=== PATIENT | male | born 1970 | race Caucasian/White ===

== ENCOUNTER → 2022-09-20 | Outpatient (CLI) | payer OTHER, SELFPAY ==
[2022-09-20 12:14] LABS: Absolute Lymphocyte Count 1.58 X10^3/uL (0.83-4.51); Absolute Neutrophil Count 2.5 X10^3/uL (2.0-7.7); Basophil# 0.04 X10^3/uL; Basophil% 0.8 % (0-1); Eosinophil# 0.13 X10^3/uL; Eosinophils% 2.7 % (0-5); Hematocrit 46.6 % (40-54); Lymphocyte # 1.58 X10^3/ul (0.83-4.51); Lymphocyte % 32.9 % (19-41); Mean Corp Hgb Conc 32.2 g/dL (32-36); Mean Corpuscular Hgb 31.2 pg (27.0-32.0); Mean Corpuscular Volume 96.9 fL (80-94); Mean Platelet Vol. 11.7 fl (6.2-12.0); Monocyte# 0.51 X10^3/uL; Monocyte% 10.6 % (0-10); NRBC Flagged by Analyzer 0 % (0-5); Neutrophil # 2.53 X10^3/uL (2.7-7.7); Neutrophil % 52.8 % (47-70); Platelet Count 251 K/mm3 (150-450); RBC Distribution Width CV 12.6 % (11.6-14.6); RBC Distribution Width SD 44.7 fl (35.1-43.9); Red Blood Count 4.81 M/mm3 (4.6-6.2); White Blood Count 4.8 K/mm3 (4.4-11.0)
[2022-09-20 12:35] LABS: Vitamin D,25 Hydroxy 29.2 ng/mL
[2022-09-20 12:39] LABS: ALB/GLOB Ratio 1.1 RATIO (0.9-2.4); AST(SGOT) 23 U/L (15-37); Alanine Aminotransfer ALT/SGPT 46 U/L (16-61); Albumin, Serum 4.1 g/dL (3.2-5.0); Alkaline Phosphatase 82 U/L (45-117); Anion Gap 5 (5-15); BUN 20 mg/dL (7-18); BUN/Creat Ratio 16.3 RATIO (10-20); Chloride 105 mmol/L (98-107); Cholesterol 214 mg/dL (200); Creatinine, Serum 1.23 mg/dL (0.70-1.30); EST Glomerular Filtration Rate 66 mL/min (>60); Est Glom Filt Rate - Afr Amer 80 mL/min (>60); Globulin 3.6 g/dL (2.2-4.2); Glucose 92 mg/dL (74-106); High Density Lipoprotein 63 mg/dL; PSA,Total - Annual Screen 2.31 ng/mL (0.00-4.00); Potassium 4.5 mmol/L (3.5-5.1); Protein, Total 7.7 g/dL (6.4-8.2); Sodium Level 139 mmol/L (136-145); Triglycerides 112 mg/dL; Very Low Density Lipoprotein 22 mg/dL (5-40)
== END | disposition home or self-care (01) ==
PROVIDERS: PCP Internal Medicine; Referring Provider Internal Medicine; Visit Provider Internal Medicine
DX: Z00.00 Encounter for general adult medical examination without abnormal findings (principal); Z13.220 Encounter for screening for lipoid disorders; Z12.5 Encounter for screening for malignant neoplasm of prostate; E55.9 Vitamin D deficiency, unspecified
CPT/HCPCS: 36415; 80053; 80061; 82306; 84153; 85025; G0103

== ENCOUNTER 2024-05-30 08:19 | Day surgery (SDC) | payer OTHER, SELFPAY ==
[2024-05-30] VITALS (7 sets, daily range): BP systolic 105–152; BP diastolic 61–83; PULSE 67–83; RESP 14–16; TEMP 36.1–37.1; O2SAT 97–100; BMI 27.3
--- NOTE | 2024-05-30 08:35 | PRE.ANES_ITS ---
ASA Classification* ASA Classification ASA Classification: 2 Assessment & Plan Anesthesia* Anesthesia Assessment Anesthesia Assessment: Discussed sedation and/or anesthesia options, risks, benefits, and alternatives with patient/parents/legal guardian/POA. Questions invited. The patient/parents/legal guardian/POA seems to understand and agrees to proceed with anesthesia plan. Reviewed the physical assessment, medical history, allergy history and patient home medications list prior to surgery/procedure/anesthetic and documented any changes. Performed airway and anesthesia risk assessments. Anesthesia Type Anesthesia Type: MAC (see written pre anesthesia record for full assessment) Anesthesia Focused Assessment* Airway Assessment Mouth opens: >3 cm Mallampati Score: II Focused Labs Anesthesia Preop lab: CBC WBC 4.8 K/mm3 (4.4-11.0) 09/20/22 08:16 RBC 4.81 M/mm3 (4.6-6.2) 09/20/22 08:16 Hgb 15.0 g/dL (13.0-16.5) 09/20/22 08:16 Hct 46.6 % (40-54) 09/20/22 08:16 Plt Count 251 K/mm3 (150-450) 09/20/22 08:16 CHEMISTRY Potassium 4.5 mmol/L (3.5-5.1) 09/20/22 08:16 Sodium 139 mmol/L (136-145) 09/20/22 08:16 BUN 20 mg/dL (7-18) H 09/20/22 08:16 Creatinine 1.23 mg/dL (0.70-1.30) 09/20/22 08:16 Glucose 92 mg/dL (74-106) 09/20/22 08:16 COAG Pre-Assessment Diagnosis/Proposed Procedure Planned Operative Procedure(s): COLONOSCOPY-OA Anesthesia History Anesthesia History - printer machine: Anesthesia History - printer machine Hx Hospitalization No 05/27/24 15:44 Any Problems With Anesthesia No 05/27/24 15:44 Cholinesterase deficiency No 05/27/24 15:44 You/Your Family Experience No 05/27/24 15:44 fever (hyperthermia) with Relationship Recent Exposure to Contagious Disease Does patient have nerve No 05/27/24 15:44 stimulator Patient instructed to have device shut off --Does patient have Pacemaker or ICD? When Was Last Pacemaker Check QUESTION #4 FULL TEXT: You/Your Family Experience fever (hyperthermia) with Anesthesia Last Oral Intake Last Oral intake: Last Oral Intake NPO since Meds taken in AM with sips of water? Meds patient instructed to take am of surgery PONV PONV - printer machine: PONV - printer machine Female No 05/27/24 15:44 HX of Motion Sickness No 05/27/24 15:44 HX of N/V After Surgery No 05/27/24 15:44 Non-Smoker Yes 05/27/24 15:44 Duration of Surgery greater No 05/27/24 15:44 than 60 minutes Number of Risk Factors 1 05/27/24 15:44 PONV Score Low Risk 05/27/24 15:44 Height & Weight Height & Weight: Anesthesia: Height & Weight Height 5 ft 11 in 03/27/24 09:11 Respiratory Assessment Respiratory Assessment - printer machine: Respiratory Tract Infection Hx - printer machine Hx Respiratory Tract Infection No 05/27/24 15:44 STOP Sleep Apnea STOP Sleep Apnea - printer machine: STOP Sleep Apnea - printer machine Hx Hypertension No 05/27/24 15:44 Hx Sleep Apnea No 05/27/24 15:44 CPAP BIPAP Do you snore loudly (louder Yes 05/27/24 15:44 than talking or can be heard Do you often feel tired/ No 05/27/24 15:44 fatigued/ sleepy during daytime? Has anyone observed you stop No 05/27/24 15:44 breathing during sleep? STOP Results Negative 05/27/24 15:44 QUESTION #5 FULL TEXT : Do you snore loudly (louder than talking or can be heard through closed doors)? 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 Specify any problems Hx of Preganancy in last 3 N/A 05/27/24 15:44 Months Nurse Filling Out Transfusion VCHRISTIN 05/27/24 15:44 & Questions: Date: 05/27/24 05/27/24 15:44 Time: 15:46 05/27/24 15:44 Patient unable to answer at this time (ie. confused, unrespo /Reproduction History /Reproductive History - printer machine: /Reproductive Hx- printer machine Hx Now Gestational Age (in weeks): EDC: Hx Hx Para Hx Section SAB PFSH Medical History Alcohol use Non-smoker Colon cancer screening Broken jaw Home Medications ?Medication ?Instructions ?Recorded ?Last Taken ?Type NK 09/13/22 Unknown History Allergy/AdvReac Type Severity Reaction Status Date / Time Seasonal Allergies: Uncoded Allergy Mild other Verified 05/27/24 15:40 Social History adopted: No household members: spouse housing: house number of children: 2 current occupational status: employed 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
--- NOTE | 2024-05-30 09:10 | H&P.OPEN ---
HPI - General HPI Narrative JORGE CEBALLOS, is a 54 M who presents for screening colonoscopy. The patient has never had a colonoscopy in the past. He denies abdominal pain or blood in the stool. He has no family history of colon cancer. 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 leisure activities: sports history of recent travel: No sexually active: Yes Smoking Status: Never smoker alcohol intake: current details: couple times a week substance use type: does not use well-balanced diet: daily or most days caffeine: Yes eating out: 1-3 times/week during the past year weight has: remained stable frequency: 1-2 times per week katerina/scientology: Roman Catholic seatbelt use: always do you feel safe at home: Yes Past Medical/Surgical History Planned Operation Planned Operative Procedure(s): COLONOSCOPY-OA Previous Hospitalizations/Surgeries HX Hospitalizations: No Any Problems With Anesthesia: No You/Your Family Experience Fever (Hyperthermia) With Anes: No Cholinesterase deficiency: No Cardiovascular Hx Hypertension: No Respiratory Hx Sleep Apnea: No Hx Respiratory Tract Infection/Cold (presently): No Do You Snore Loudly (louder than talking or can be heard): Yes Do You Often Feel Tired/ Fatigued/ Sleepy Dring Daytime?: No Has Anyone Observed You Stop Breathing During Sleep?: No Result (for STOP score): Negative Smoking Status: Never smoker Neurological Does patient have nerve stimulator: No Miscellaneous Recent Exposure to Contagious Disease: No Allergies Seasonal Allergies: Uncoded Allergy (Mild, Verified 05/30/24 08:37) other Discharge Is Pt Admitted From a [facility]sp, or a Shelter: No After D/C, Where Do you Plan to Go: Return Home Vital Signs Vital Signs Vital Signs: 05/30/24 08:37 05/30/24 08:37 Temperature 97.4 F L Temperature Source Temporal Pulse Rate 67 Respiratory Rate 14 Respiratory Pattern Normal Blood Pressure 152/82 H Blood Pressure Mean 105 Blood Pressure Source Monitor Blood Pressure Position Semi-Fowlers Blood Pressure Location Left Arm Pulse Ox 100 Oxygen Delivery Method Room Air Weight Weight: 196 lb 3.382 oz Body Mass Index (BMI) 27.3 Physical Exam Const alert and oriented x3 HEENT normocephalic Eyes PERRL Resp normal respiratory effort and normal air movement Cardio regular rate and regular rhythm GI soft to palpation, non-tender and non-distended Extremity normal to inspection Assessment & Plan Assessment/Plan (1) Colon cancer screening: PLAN: I explained endoscopy in detail to the patient. I explained the risks including but not limited to stroke or heart attack with anesthesia, perforation of the GI tract, bleeding, infection. I explained that any of these could necessitate further emergency surgery. The patient understands and all questions were answered sufficiently. The patient wishes to proceed with procedure. Colin Gill MD Pager: [facility] [address] [place] [address] [address] [place] [address] Office: Surgery Risks - Colonoscopy Risks Include but are not Limited To: Risks include but are not limited to: Bleeding, perforation requiring further surgery, inability to complete colonoscopy requiring barium enema.
--- NOTE | 2024-05-30 09:40 | PCM.POST.ANE ---
Anesthesia: Postop Eval I Current Vital Signs Temperature: 97 F Pulse Rate: 77 Blood Pressure: 125/61 Respiratory Rate: 16 Pulse Ox: 98 Oxygen Delivery Method: Room Air Assessment Airway patent: Yes Spontaneous unlabored respirations: Yes Mental status: Awake and Calm nausea: No Vomiting: No Anesthesia Complication: No Fluid Hydration Crystalloid volume administer (ml): 30 Total IV fluid infused: 30 Progress Note Anesthesia document: Postop Eval 1 completed: Yes
--- NOTE | 2024-05-30 09:55 | PCM.POSTANE2 ---
Anesthesia Postop Eval I Sum Postop Eval Completion status Anesthesia document: Postop Eval 1 completed: Yes Anesthesia Postop Eval I Summary Anesthesia Postop Eval I Summary: Anesthesia Postop Eval I: Assessment Summary Airway patent Yes 05/30/24 09:41 [email or web address] Spontaneous unlabored Yes 05/30/24 09:41 [email or web address] respirations Mental status Awake,Calm 05/30/24 09:41 [email or web address] nausea No 05/30/24 09:41 [email or web address] Vomiting No 05/30/24 09:41 [email or web address] Anesthesia Postop Eval I: Fluid Summary Crystalloid volume administer 30 05/30/24 09:41 [email or web address] (ml) Colloids volume administered ( ml) Blood Product volume administered (ml) Total IV fluid infused 30 05/30/24 09:41 [email or web address] Anesthesia Postop Eval I: Summary Notes Anesthesia Complication No 05/30/24 09:41 [email or web address] Anesthesia Complication Comment: Post-operative progress note Anesthesia: Postop Eval II Evaluation Mental status: Awake Pain Level: 0 nausea: No Vomiting: No
--- NOTE | 2024-06-02 15:27 | OP.COLON_ITS ---
Patient Name: Ajith Dobson Procedure Date: 05/30/2024 9:16 AM Date of : 1970 Age: 54 Procedure: Colonoscopy Indications: Screening for colorectal malignant neoplasm Providers: Colin Gill MD Medicines: Propofol per Anesthesia Patient Profile: This is a 54 year old male. Refer to note in patient chart for documentation of history and physical. Last Colonoscopy: none. The patient's first colonoscopy is today. Complications: No immediate complications. Procedure: Pre-Anesthesia Assessment: - Prior to the procedure, a History and Physical was performed, and patient medications and allergies were reviewed. The patient's tolerance of previous anesthesia was also reviewed. The risks and benefits of the procedure and the sedation options and risks were discussed with the patient. All questions were answered, and informed consent was obtained. Prior Anticoagulants: The patient has taken no anticoagulant or antiplatelet agents. After reviewing the risks and benefits, the patient was deemed in satisfactory condition to undergo the procedure. After I obtained informed consent, the scope was passed under direct vision. Throughout the procedure, the patient's blood pressure, pulse, and oxygen saturations were monitored continuously. The Colonoscope was introduced through the anus and advanced to the cecum, identified by appendiceal orifice and ileocecal valve. The colonoscopy was performed without difficulty. The patient tolerated the procedure well. The quality of the bowel preparation was good. The ileocecal valve, appendiceal orifice, and rectum were photographed. Scope In: 9:23:24 AM Scope Withdrawal Time 0 hours 2 minutes 45 seconds Scope Out: 9:29:04 AM Total Procedure Duration Time 0 hours 5 minutes 40 seconds Findings: The entire examined colon appeared normal on direct and retroflexion views. Impression: - The entire examined colon is normal on direct and retroflexion views. - No specimens collected. Recommendation: - Discharge patient to home. - Resume previous diet. - Continue present medications. - Repeat colonoscopy in 10 years for screening purposes. Procedure Code(s): --- Professional --- 16009, Colonoscopy, flexible; diagnostic, including collection of specimen(s) by brushing or washing, when performed (separate procedure) Diagnosis Code(s): --- Professional --- Z12.11, Encounter for screening for malignant neoplasm of colon CPT copyright 2021 [employer]. All rights reserved. The codes documented in this report are preliminary and upon artists' model review may be revised to meet current compliance requirements. Colin Gill MD 05/30/2024 9:38:55 AM This report has been signed electronically. Number of Addenda: 0 Note Initiated On: 05/30/2024 9:16 AM
--- NOTE | 2024-06-02 15:27 | OP.CCLET_ITS ---
05/30/2024 Dayna Kaur [facility] [address] [place] [address] Re : Colonoscopy procedure for Ajith Dobson Dear Dr. Kaur This procedure was performed on Thursday, May 30, 2024. My impressions and recommendations are as follows: Impressions : - The entire examined colon is normal on direct and retroflexion views. - No specimens collected. Recommendations : - Discharge patient to home. - Resume previous diet. - Continue present medications. - Repeat colonoscopy in 10 years for screening purposes. My findings are described in the full procedure note, which is enclosed. If I can be of further assistance, please feel free to contact me at Doctor phone number(s): , Work: . Sincerely, Colin Gill MD 05/30/2024 9:38:55 AM This report has been signed electronically.
== END 2024-05-30 10:14 | disposition home or self-care (01) ==
PROVIDERS: PCP Internal Medicine; Referring Provider Internal Medicine; Visit Provider Surgery
PROC: 0DJD8ZZ Inspection of Lower Intestinal Tract, Via Natural or Artificial Opening Endoscopic (ICD-10-PCS; CPT 45378; principal; 2024-05-30 09:10)
DX: Z12.11 Encounter for screening for malignant neoplasm of colon (principal)
CPT/HCPCS: 45378; A4216; J2405